=== PATIENT | male | born 1985 | race Caucasian/White ===

== ENCOUNTER 2018-09-13 12:54 | Outpatient (CLI) | payer OTHER ==
--- NOTE | 2018-09-13 14:49 | MRI ---
MRI LUMBAR SPINE WITHOUT CONTRAST: 09/13/2018 HISTORY: Right lower back pain for six months. FINDINGS: The retroperitoneal structures demonstrate a normal MRI appearance. The conus medullaris is normal i n appearance and terminates at the superior endplate of the T12 vertebral body. L1-L2: There is no disk bulge or disk herniation. Central spinal canal and neural foramina are cuenca nt. L2-L3: There is no disk bulge or disk herniation. Central spinal canal and neural foramina are cuenca nt. L3-L4: There is minimal disk osteophyte complex, with only slight flattening of the anterior aspect of the thecal sac. No significant narrowing of the central spinal canal is present. The neural fora jeffrey are patent. L4-L5: There is loss of intervertebral disk height. There is a broad-based disk osteophyte complex with a central disk protrusion. This results in moderate narrowing of the central spinal canal. The re is only minimal encroachment on each neural foramen. Mild facet degenerative changes are present. L5-S1: There is a mild broad-based disk bulge with a tiny central disk protrusion and an associated annular tear. This encroaches on the traversing bilateral S1 nerve roots but does not deform the ner ve roots, although there is slightly posterior displacement of the traversing left S1 nerve root comp ared to the right. The central spinal canal is patent at this level. The neural foramina are also p atent. IMPRESSION: Disk degenerative changes at the L4-L5 and L5-S1 levels. There is a broad-based disk bulge with prom inent central disk protrusion at the L4-L5 level, resulting in moderate narrowing of the central spin al canal and mild neural foraminal narrowing. At the L5-S1 level, there is a mild disk bulge and tin y central disk protrusion with an associated annular tear. This encroaches on the traversing bilater al S1 nerve roots but does not appear to deform the nerve roots. POS: MIKY
== END 2018-09-13 12:55 | disposition home or self-care (01) ==
LOC: TBSIIMAG 12:54
PROVIDERS: ATTEND Neurological Surgery
DX: M51.16 Intervertebral disc disorders with radiculopathy, lumbar region (principal); M51.37 Other intervertebral disc degeneration, lumbosacral region; M48.061 Spinal stenosis, lumbar region without neurogenic claudication; M51.27 Other intervertebral disc displacement, lumbosacral region; M51.87 Other intervertebral disc disorders, lumbosacral region
CPT/HCPCS: 72148